=== PATIENT | female | born 1975 | race Caucasian/White ===

== ENCOUNTER → 2020-07-21 07:54 | Outpatient (BNVA) | payer BC, SELFPAY | PROVIDERS: PCP Internal Medicine; Referring Provider Internal Medicine; Visit Provider Student in an Organized Health Care Education/Training Program | DX: Z76.89 Persons encountering health services in other specified circumstances (principal) ==

== ENCOUNTER → 2021-04-16 08:07 | Outpatient (BNVA) | payer BC, SELFPAY | PROVIDERS: PCP Internal Medicine; Visit Provider Nurse Practitioner Family ==

== ENCOUNTER → 2021-11-09 09:29 | Outpatient (BNVA) | payer BC, SELFPAY | PROVIDERS: PCP Internal Medicine; Visit Provider Nurse Practitioner Family | DX: Z13.89 Encounter for screening for other disorder (principal) ==

== ENCOUNTER 2022-04-22 08:45 | Outpatient (REF) | payer BC, SELFPAY ==
[2022-04-22 09:58] LABS: Alanine Aminotransferase 19 U/L (0-31); Albumin Level 4.2 g/dL (3.5-5.0); Alkaline Phosphatase 62 U/L (39-117); Anion Gap 17 (12-20); Aspartate Amino Transferase 19 U/L (5-31); Bilirubin Total 0.3 mg/dL (0.0-1.0); Blood Urea Nitrogen 13 mg/dL (9-16); Calcium 9.4 mg/dL (8.4-10.2); Carbon Dioxide 23 mmol/L (22-29); Chloride 106 mmol/L (96-108); Estimated Glomerular Filt Rate > 60; Glucose Random 80 mg/dL (60-115); Potassium 4.5 mmol/L (3.3-5.1); Sodium 141 mmol/L (135-145)
[2022-04-22 09:58] LABS: Erythrocyte Sedimentation Rate 13 MM/HR (0-20)
[2022-04-23 10:37] LABS: Prolactin 7.9 ng/mL
[2022-04-23 13:18] LABS: Lyme Abs Screen <0.90 index
[2022-04-25 12:37] LABS: Anti Nuclear Antibody Screen NEGATIVE (NEGATIVE)
== END 2022-04-22 08:46 | disposition home or self-care (01) ==
LOC: HO.LAB 08:45
PROVIDERS: Nurse Practitioner Family; PCP Internal Medicine; Visit Provider Psychiatry & Neurology Neurology
DX: G43.009 Migraine without aura, not intractable, without status migrainosus (principal); M79.7 Fibromyalgia
CPT/HCPCS: 36415; 80053; 84146; 85652; 86038; 86039; 86617; 86618

== ENCOUNTER 2022-05-10 08:48 | Outpatient (REF) | payer BC, SELFPAY ==
--- NOTE | ~2022-05-10 | XR_ITS ---
EXAMINATION: XR HAND, BILATERAL XR FOOT, BILATERAL CLINICAL INFORMATION: Pain in bilateral hands. Pain in bilateral feet. COMPARISON: None. TECHNIQUE: 3 views of the bilateral feet. 3 views of the bilateral hands. FINDINGS: Right foot: No fracture or dislocation. No bony erosions visualized. Alignment is within normal limits. No joint effusion. Small plantar calcaneal spur. Left foot: No fracture or dislocation. No bony erosions. No joint effusion. Hands: No fracture or dislocation. Normal alignment. No erosions. Soft tissues unremarkable. No radiopaque foreign bodies. XR/XR hand LT min 3V IMPRESSION: No fracture or dislocation. No bony erosions. Small right plantar calcaneal spur.
--- NOTE | ~2022-05-10 | XR_ITS ---
EXAMINATION: XR HAND, BILATERAL XR FOOT, BILATERAL CLINICAL INFORMATION: Pain in bilateral hands. Pain in bilateral feet. COMPARISON: None. TECHNIQUE: 3 views of the bilateral feet. 3 views of the bilateral hands. FINDINGS: Right foot: No fracture or dislocation. No bony erosions visualized. Alignment is within normal limits. No joint effusion. Small plantar calcaneal spur. Left foot: No fracture or dislocation. No bony erosions. No joint effusion. Hands: No fracture or dislocation. Normal alignment. No erosions. Soft tissues unremarkable. No radiopaque foreign bodies. XR/XR foot RT 2V IMPRESSION: No fracture or dislocation. No bony erosions. Small right plantar calcaneal spur.
--- NOTE | ~2022-05-10 | XR_ITS ---
EXAMINATION: XR HAND, BILATERAL XR FOOT, BILATERAL CLINICAL INFORMATION: Pain in bilateral hands. Pain in bilateral feet. COMPARISON: None. TECHNIQUE: 3 views of the bilateral feet. 3 views of the bilateral hands. FINDINGS: Right foot: No fracture or dislocation. No bony erosions visualized. Alignment is within normal limits. No joint effusion. Small plantar calcaneal spur. Left foot: No fracture or dislocation. No bony erosions. No joint effusion. Hands: No fracture or dislocation. Normal alignment. No erosions. Soft tissues unremarkable. No radiopaque foreign bodies. XR/XR foot LT 2V IMPRESSION: No fracture or dislocation. No bony erosions. Small right plantar calcaneal spur.
--- NOTE | ~2022-05-10 | XR_ITS ---
EXAMINATION: XR HAND, BILATERAL XR FOOT, BILATERAL CLINICAL INFORMATION: Pain in bilateral hands. Pain in bilateral feet. COMPARISON: None. TECHNIQUE: 3 views of the bilateral feet. 3 views of the bilateral hands. FINDINGS: Right foot: No fracture or dislocation. No bony erosions visualized. Alignment is within normal limits. No joint effusion. Small plantar calcaneal spur. Left foot: No fracture or dislocation. No bony erosions. No joint effusion. Hands: No fracture or dislocation. Normal alignment. No erosions. Soft tissues unremarkable. No radiopaque foreign bodies. XR/XR hand RT min 3V IMPRESSION: No fracture or dislocation. No bony erosions. Small right plantar calcaneal spur.
[2022-05-10 10:49] LABS: C Reactive Protein 0.25 mg/dL (< or = 0.50)
== END 2022-05-10 08:49 | disposition home or self-care (01) ==
LOC: HO.XRAY 08:48
PROVIDERS: PCP Internal Medicine; Visit Provider Nurse Practitioner Family
DX: M79.672 Pain in left foot (principal); M79.671 Pain in right foot; M79.642 Pain in left hand; M79.641 Pain in right hand
CPT/HCPCS: 36415; 73130; 73620; 86140

== ENCOUNTER 2023-01-21 09:19 | Outpatient (AMB) | payer OTHER, SELFPAY ==
[2023-01-21 09:27] VITALS: BP 104/62; PULSE 110; TEMP 36.7; O2SAT 96; BMI 32.5
--- NOTE | 2023-01-21 09:27 | MHC.OFFVIS ---
Intake Vital Signs 01/21/23 09:27 Height 5 ft 5 in Weight 195 lb 1.745 oz BMI 32.5 BP 104/62 Blood Pressure Location Lt brachial Position Sitting Pulse 110 H Pulse Source Pulse Oximeter Temp 98.1 F Temp Source Skin Pulse Oximetry (%) 96 Intake Visit Reasons: FM Intake Note: Pt seen today for FM follow up. June 2022 started venlafaxine, doing much better. 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: No Accompanied by: Self / Same As Patient Allergies baclofen [BACLOFEN] Allergy (Intermediate, Verified 01/21/23 09:29) CHEST TIGHTNESS, chest tightness, swelling nut - unspecified [NUTS] Allergy (Intermediate, Verified 01/21/23 09:29) SWELLING OF MOUTH topiramate Adverse Reaction (Mild, Verified 01/21/23 09:29) Fatigued Medication List - Last Reconciled 01/21/23 by Bal Richter MD acetaminophen ER (Tylenol Arthritis Pain) 650 mg PO Q12H PRN cholecalciferol (vitamin D3) 25 mcg PO DAILY cyclobenzaprine 5 mg PO BEDTIME PRN diclofenac sodium 1% (Voltaren Arthritis Pain) 2 grams topical QID PRN gabapentin 600 mg (2 x 300 mg) PO TID hydroxyzine HCl 25 mg PO BEDTIME PRN naltrexone 50 mg PO DAILY sumatriptan succinate 50 mg PO DAILY PRN venlafaxine ER (Effexor XR) 75 mg PO DAILY HPI HPI Comments History of Present Illness Details Patient returns for evaluation of her fibromyalgia. She also has known osteoarthritis in the knees. She remains on gabapentin taking 600 mg 3 times a day. Occasionally she decreases it to one 300 mg capsule in the daytime. She has received occasional injections in the knees for OA but they are not particularly bothersome currently. Overall pain, energy level, and mood has improved considerably with the addition of citalopram prescribed by her primary doctor. She no longer needs any cyclobenzaprine and rarely takes acetaminophen. She notes some catching at the right thumb. [facility] Medical History (Updated 01/21/23 @ 13:45 by Bal Richter MD) Fibromyalgia Surgical History (Updated 01/21/23 @ 13:44 by Bal Richter MD) History of hip replacement Hx of hysterectomy Family History Mother CVD (cardiovascular disease) Diabetes HTN (hypertension) Father Diabetes HTN (hypertension) Social History Alcohol intake: never Patient Tobacco Use Status: Never used Tobacco Review of Systems Const Details: She is doing more exercising and working on weight reduction. This is been helpful for her. Negative for appetite change, fever, chills, malaise and fatigue Eyes Details: Negative for vision change, dry eyes,headaches and dizziness Card Details: Negative chest pain, edema and syncope Resp Details: Negative for SOB, cough and wheezing GI Details: Negative indigestion/heartburn, nausea, abdominal pain, bowel changes, diarrhea, constipation and bloody stool. Psych Details: Negative for anxiety, depression and stress Alexandro/Lymph Details: Negative for excessive bruising or bleeding. Physical Exam Vital Signs: Last Vital Signs Temp 98.1 F 01/21/23 09:27 Pulse 110 H 01/21/23 09:27 BP 104/62 01/21/23 09:27 Pulse Ox 96 01/21/23 09:27 BMI result Body Mass Index 32.5 APPEARANCE: Patient in no acute distress EYES no redness, pupils equal and reactive to light, eyelids normal EXTREMITIES: No edema, no calf tenderness, normal peripheral pulses. SKIN: No inflammatory or neoplastic lesions. Normal color and turgor JOINT EXAM: ?? Cervical Spine:? Full range of motion without pain; no tenderness. Thoracic Spine:? No scoliosis.? No tenderness on palpation. Lumbar Spine: Alignment normal.? Full range of motion without pain, no tenderness. Hands: LEFT: Normal pain-free range of motion without.? Slight tenderness along the flexor tendons at the palm. Otherwise no joint swelling or tenderness. Able to make a full fist and has a good bank teller strength. ? RIGHT: Normal pain-free range of motion. There is some slight tenderness along the thumb flexor tendon and there may also be some triggering over that tendon. Other joints have no tenderness or swelling. No thenar atrophy or sensory loss. Wrists:? Normal pain-free range of motion without tenderness, swelling, increased warmth or erythema. Elbows:Normal pain-free range of motion without tenderness, swelling, increased warmth or erythema. Shoulders:?? Full range of motion without pain. No tenderness, weakness, swelling, increased warmth or erythema. Hips:? Full range of motion without pain. Hip bursa:? No tenderness. Knees: LEFT:?? Normal pain-free range of motion.? There is mild patellofemoral crepitus and some slight medial compartment medial patellar tenderness but no effusion, redness or warmth. ? RIGHT:? Normal pain-free range of motion.? There is mild patellofemoral crepitus and slight tenderness over the medial patella and the medial joint margin. No effusion, swelling, increased warmth or erythema.? Ankles:? Normal pain-free range of motion without tenderness, swelling, increased warmth or erythema.? Widespread diffuse tenderness to palpation bilaterally. Feet: LEFT:? Bunion deformity noted 1st MTP. ? Normal pain-free range of motion without swelling, increased warmth or erythema.? Widespread diffuse tenderness to palpation. ? RIGHT: Bunion deformity noted 1st MTP. ? Normal pain-free range of motion without swelling, increased warmth or erythema.? Widespread diffuse tenderness to palpation. Tender points:. Slight tenderness to digital palpation at the slight tenderness to palpation at the second rib, lateral epicondyle, knees, greater trochanter area bilaterally. ? Assessment & Plan Assessment & Plan (1) Osteoarthritis of knees, bilateral: Code(s): M17.0 - Bilateral primary osteoarthritis of knee (2) Flexor tenosynovitis of thumb: Code(s): M65.9 - Synovitis and tenosynovitis, unspecified (3) Fibromyalgia: Code(s): M79.7 - Fibromyalgia Plan She does not seem to have any signs on exam of an active inflammatory arthritis. There is some slight pain in the flexor tendons suggesting some tenosynovitis. Overall she has done much better since the addition of the citalopram for her fibromyalgia. I encouraged her to continue with that. She could try to cut back on daytime use of the gabapentin if tolerated. She has some OA of the knees, mostly patellofemoral symptoms so that should be helped with the exercise she is doing and further reduction in her weight. A follow-up in 6 months would be reasonable. Coding Level of Care Code Est Pt Level 3 (81805) Diagnoses Osteoarthritis of knees, bilateral M17.0 Flexor tenosynovitis of thumb M65.9 Fibromyalgia M79.7
== END 2023-01-21 09:50 | disposition home or self-care (01) ==
PROVIDERS: PCP Internal Medicine; Visit Provider Internal Medicine Rheumatology
DX: M17.0 Bilateral primary osteoarthritis of knee (principal); M65.9 Synovitis and tenosynovitis, unspecified; M79.7 Fibromyalgia
CPT/HCPCS: 99213

== ENCOUNTER → 2023-01-21 09:19 | Outpatient (BNVA) | payer OTHER, SELFPAY | PROVIDERS: PCP Internal Medicine; Visit Provider Internal Medicine Rheumatology ==

== ENCOUNTER 2023-07-22 10:10 | Outpatient (AMB) | payer OTHER, SELFPAY ==
--- NOTE | 2023-07-22 10:13 | MHC.OFFVIS ---
Intake Vital Signs 07/22/23 10:14 Height 5 ft 5 in Weight 190 lb 0.615 oz BMI 31.6 BP 112/70 Blood Pressure Location Rt brachial Position Sitting Pulse 89 Pulse Source Pulse Oximeter Temp 97.4 F Temp Source Skin Pulse Oximetry (%) 96 Oxygen Delivery Method Room Air Intake Visit Reasons: FM Intake Note: Pt last seen by Dr Richter on 01/21/23 presents today for follow up. New pcp Dr Stanton last visit 05/2023 Sinker Puller Required: No Accompanied by: Self / Same As Patient Allergies baclofen [BACLOFEN] Allergy (Intermediate, Verified 07/22/23 10:16) CHEST TIGHTNESS, chest tightness, swelling nut - unspecified [NUTS] Allergy (Intermediate, Verified 07/22/23 10:16) SWELLING OF MOUTH topiramate Adverse Reaction (Mild, Verified 07/22/23 10:16) Fatigued Medication List - Last Reconciled 07/22/23 by Obie Caceres MD acetaminophen ER (Tylenol Arthritis Pain) 650 mg PO Q12H PRN cholecalciferol (vitamin D3) 25 mcg PO DAILY cyclobenzaprine 5 mg PO BEDTIME PRN diclofenac sodium 1% (Voltaren Arthritis Pain) 2 grams topical QID PRN eszopiclone 2 mg PO BEDTIME PRN gabapentin 600 mg (2 x 300 mg) PO TID hydroxyzine HCl 25 mg PO BEDTIME PRN linaclotide (Linzess) 72 mcg PO QAM naltrexone 50 mg PO DAILY ondansetron 8 mg PO TID sumatriptan succinate 50 mg PO DAILY PRN venlafaxine 75 mg PO BID HPI HPI Comments History of Present Illness Details 47-year-old female with fibromyalgia returns for follow-up. Gabapentin is prescribed as 600 mg t.i.d. but patient tries to skip the afternoon dose. Recently her Effexor was increased to 75 mg Twice daily and she feels the increased dose is helping. She feels that overall pain is a little worse now that it is colder. She exercises 6 days a week. He does not have a psychiatrist or a psychotherapist currently. Her Effexor is prescribed by her PCP. She has not interested in talking to a psychotherapist at this moment. She has done that for many years in the past. She feels that she sleeps well and wakes up refreshed. Does not believe she snores Most recent history by Dr. Richter 01/2023: Patient returns for evaluation of her fibromyalgia. She also has known osteoarthritis in the knees. She remains on gabapentin taking 600 mg 3 times a day. Occasionally she decreases it to one 300 mg capsule in the daytime. She has received occasional injections in the knees for OA but they are not particularly bothersome currently. Overall pain, energy level, and mood has improved considerably with the addition of citalopram prescribed by her primary doctor. She no longer needs any cyclobenzaprine and rarely takes acetaminophen. She notes some catching at the right thumb. [facility] Medical History Fibromyalgia Surgical History Hx of hysterectomy History of hip replacement Family History Mother CVD (cardiovascular disease) Diabetes HTN (hypertension) Father Diabetes HTN (hypertension) Social History Alcohol intake: never Patient Tobacco Use Status: Never used Tobacco Review of Systems [facility] Reports myalgias and Reports arthralgias Physical Exam Vital Signs: Last Vital Signs Temp 97.4 F 07/22/23 10:14 Pulse 89 07/22/23 10:14 BP 112/70 07/22/23 10:14 Pulse Ox 96 07/22/23 10:14 Oxygen Delivery Method Room Air 07/22/23 10:14 BMI result Body Mass Index 31.6 Const General: cooperative, healthy appearing and comfortable Nutritional Appearance: obese Orientation/consciousness: patient oriented x3 Limitations: no limitations HEENT Head: Yes normocephalic and Yes atraumatic Mouth: moist mucous membranes Resp Effort & Inspection: normal respiratory effort and able to speak in complete sentences Auscultation: clear to auscultation bilaterally Cardio Rate: regular rate Rhythm: regular rhythm GI Inspection: No distended Palpation (GI): Soft to palpation and nontender Neuro General: patient oriented x3 Extrem Other: No active synovitis Some hyperextension of her DIPs bilaterally 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 ) No obvious fibromyalgia tender points today Results Reviewed Results Reviewed: Laboratory Tests 01/13/20 04/22/22 04/22/22 08:54 08:55 08:55 ESR Sodium 141 Potassium 4.5 Chloride 106 Carbon Dioxide 23 BUN 13 Creatinine 0.79 Random Glucose 80 Calcium 9.4 Total Bilirubin 0.3 AST 19 ALT 19 Cycl Citrul Peptide IgG <16 TONA Screen NEGATIVE 04/22/22 08:56 ESR 13 Sodium Potassium Chloride Carbon Dioxide BUN Creatinine Random Glucose Calcium Total Bilirubin AST ALT Cycl Citrul Peptide IgG TONA Screen Assessment & Plan Assessment & Plan (1) Fibromyalgia: Code(s): M79.7 - Fibromyalgia Plan: This is a 47-year-old female with fibromyalgia who returns for follow-up. She is doing well on Effexor 75 mg Twice daily, prescribed by PCP and gabapentin 600 mg t.i.d.. She generally skips the afternoon gabapentin dose. She exercises 6 days a week. Patient mentions that she sleeps well and wakes up refreshed. Does not believe she snores. Continue current management. Advised patient to continue to exercise Follow-up in 6 months. Plan I spent 15 minutes reviewing patient's chart, evaluating patient, counseling patient and documenting in the chart Coding Level of Care Code Est Pt Level 3 (27817) Diagnoses Fibromyalgia M79.7
[2023-07-22 10:14] VITALS: BP 112/70; PULSE 89; TEMP 36.3; O2SAT 96; BMI 31.6
== END 2023-07-22 10:28 | disposition home or self-care (01) ==
PROVIDERS: PCP Internal Medicine; Visit Provider Student in an Organized Health Care Education/Training Program
DX: M79.7 Fibromyalgia (principal)
CPT/HCPCS: 99213

== ENCOUNTER → 2023-07-22 10:10 | Outpatient (BNVA) | payer OTHER, SELFPAY | PROVIDERS: PCP Internal Medicine; Visit Provider Student in an Organized Health Care Education/Training Program ==

== ENCOUNTER 2024-04-14 07:35 | Outpatient (AMB) | payer OTHER, SELFPAY ==
--- NOTE | 2024-04-14 07:40 | A.OFFVIS_ITS ---
Vital Signs 04/14/24 07:42 Height 5 ft 5 in Weight 195 lb 12.328 oz BMI 32.6 BP 100/62 Blood Pressure Location Rt brachial Position Sitting Pulse 93 Pulse Source Pulse Oximeter Pulse Oximetry (%) 98 Oxygen Delivery Method Room Air Intake Visit Reasons: FMS Intake Note: Patient presents for FMS. Allergies baclofen [BACLOFEN] Allergy (Intermediate, Verified 04/14/24 07:42) CHEST TIGHTNESS, chest tightness, swelling nut - unspecified [NUTS] Allergy (Intermediate, Verified 04/14/24 07:42) SWELLING OF MOUTH topiramate Adverse Reaction (Mild, Verified 04/14/24 07:42) Fatigued Medication List - Last Reconciled 04/14/24 by Obie Caceres MD acetaminophen ER (Tylenol Arthritis Pain) 650 mg PO Q12H PRN cholecalciferol (vitamin D3) 25 mcg PO DAILY cyclobenzaprine 5 mg PO BEDTIME PRN diclofenac sodium 1% (Voltaren Arthritis Pain) 2 grams topical QID PRN eszopiclone 2 mg PO BEDTIME PRN gabapentin 600 mg (2 x 300 mg) PO TID hydroxyzine HCl 25 mg PO BEDTIME PRN linaclotide (Linzess) 72 mcg PO QAM naltrexone 50 mg PO DAILY ondansetron 8 mg PO TID sumatriptan succinate 50 mg PO DAILY PRN venlafaxine 75 mg PO BID HPI Comments Details: 48-year-old female with fibromyalgia returns for follow-up. She remains on gabapentin 600 mg t.i.d.. Sometimes she skips the afternoon dose. She does different forms of exercise 6 days a week. She has not had a sleep study. She is not interested in psychotherapy evaluation. [facility] Medical History Fibromyalgia Surgical History Hx of hysterectomy History of hip replacement Family History Mother CVD (cardiovascular disease) Diabetes HTN (hypertension) Father Diabetes HTN (hypertension) Social History Alcohol intake: never Patient Tobacco Use Status: Never used Tobacco Review of Systems [facility] Reports myalgias and Reports arthralgias Physical Exam Vital Signs: Last Vital Signs Pulse 93 04/14/24 07:42 BP 100/62 04/14/24 07:42 Pulse Ox 98 04/14/24 07:42 Oxygen Delivery Method Room Air 04/14/24 07:42 BMI result Body Mass Index 32.6 Const General: cooperative, healthy appearing and comfortable Nutritional Appearance: obese Orientation/consciousness: patient oriented x3 Limitations: no limitations HEENT Head: Yes normocephalic and Yes atraumatic Mouth: moist mucous membranes Resp Effort & Inspection: normal respiratory effort and able to speak in complete sentences Auscultation: clear to auscultation bilaterally Cardio Rate: regular rate Rhythm: regular rhythm GI Inspection: No distended Palpation (GI): Soft to palpation and nontender Neuro General: patient oriented x3 Extrem Other: No active synovitis Some hyperextension of her DIPs bilaterally 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 She is doing well on Effexor 75 mg Twice daily, prescribed by PCP and gabapentin 600 mg t.i.d.. She generally skips the afternoon gabapentin dose. She exercises 6 days a week. Patient mentions that she sleeps well and wakes up refreshed. Does not believe she snores. Advised patient to consider getting a sleep study to rule out TWYLA. She is not interested in psychotherapy evaluation Continue current management. Advised patient to continue to exercise Follow-up in 6 months. Plan I spent 15 minutes reviewing patient's chart, evaluating patient, counseling patient and documenting in the chart Medications: Refilled gabapentin 600 mg (2 x 300 mg) PO TID 180 caps 3RF M79.7 - Fibromyalgia gabapentin 600 mg (2 x 300 mg) PO TID 180 caps 5RF M79.7 - Fibromyalgia Coding Level of Care Code Est Pt Level 3 (54552) Diagnoses Fibromyalgia M79.7
[2024-04-14 07:42] VITALS: BP 100/62; PULSE 93; O2SAT 98; BMI 32.6
== END 2024-04-14 08:01 | disposition home or self-care (01) ==
PROVIDERS: PCP Internal Medicine; Visit Provider Student in an Organized Health Care Education/Training Program
DX: M79.7 Fibromyalgia (principal)
CPT/HCPCS: 99213

== ENCOUNTER → 2024-04-14 07:35 | Outpatient (BNVA) | payer OTHER, SELFPAY | PROVIDERS: PCP Internal Medicine; Visit Provider Student in an Organized Health Care Education/Training Program ==

== ENCOUNTER 2025-01-20 08:15 | Outpatient (AMB) | payer BC, SELFPAY ==
--- NOTE | 2025-01-20 08:18 | A.OFFVIS_ITS ---
Vital Signs 01/20/25 08:25 Height 5 ft 5 in Weight 192 lb 10.944 oz BMI 32.1 BP 120/80 Blood Pressure Location Rt brachial Position Sitting Pulse 101 H Pulse Source Pulse Oximeter Pulse Oximetry (%) 98 Oxygen Delivery Method Room Air Intake Visit Reasons: FMS Intake Note: Patient presents for FMS follow up. Allergies baclofen (BACLOFEN) Allergy (Intermediate, Verified 01/20/25 08:23) CHEST TIGHTNESS, chest tightness, swelling nut - unspecified (NUTS) Allergy (Intermediate, Verified 01/20/25 08:23) SWELLING OF MOUTH topiramate Adverse Reaction (Mild, Verified 01/20/25 08:23) Fatigued Medication List - Last Reconciled 01/20/25 by Anaya Kincaid MD acetaminophen ER (Tylenol Arthritis Pain) 650 mg PO Q12H PRN cholecalciferol (vitamin D3) 25 mcg PO DAILY cyclobenzaprine 5 mg PO BEDTIME PRN diclofenac sodium 1% (Voltaren Arthritis Pain) 2 grams topical QID PRN eszopiclone 2 mg PO BEDTIME PRN gabapentin 600 mg (2 x 300 mg) PO TID hydroxyzine HCl 25 mg PO BEDTIME PRN linaclotide (Linzess) 72 mcg PO QAM naltrexone 50 mg PO DAILY ondansetron 8 mg PO TID sumatriptan succinate 50 mg PO DAILY PRN venlafaxine 225 mg PO ONCE HPI Comments Details: Patient is a 49-year-old female with hx of SUFE s/p fixation c/b limb length discrepancy and early hip OA, migraines, polyarticular osteoarthritis (Hip s/p LHR 03/2019, RHR 05/2018; Knee LKR 12/2024) and fibromyalgia here today for follow up Interval History: Patient last seen 04/14/[address] Caceres. - On gabapentin 600mg tid, sometimes skipping the afternoon dose - No changes to medications Today, - Had left knee replacement 12/2024 - Currently doing PT - Requesting additional cyclobenzaprine to help with muscle spasms Rheumatologic History: fibromyalgia - Gabapentin - cyclobenzaprine. did not tolerate - Lyrica. caused weight gain - Amitriptyline. Helped but made her tired - Cymbalta. Caused tremors Current Rheumatology Medication(s): Low dose naltrexone (prescribed by Urology) Gabapentin 600mg tid PFSH Medical History Fibromyalgia Surgical History (Updated 01/20/25 @ 08:25 by TRACEY Ashby) History of left knee replacement Hx of hysterectomy History of hip replacement Family History Mother CVD (cardiovascular disease) Diabetes HTN (hypertension) Father Diabetes HTN (hypertension) Social History Alcohol intake: never Patient Tobacco Use Status: Never used Tobacco Review of Systems Const Details: Review of Systems Constitutional: Denies fever, chills, weight loss ENT: Denies vision changes, eye pain or eye redness, dental caries, dry mouth GI: Denies nausea, vomiting, diarrhea, abdominal pain, change in BM Pulm: Denies SOB, ERNANDEZ, hemoptysis, wheezing Cards: Denies chest pain, palpitations Skin: Denies Raynaud's, rash, nail changes, photosensitivity, [employer]ARK INTER[employer]ANGER: Denies headaches, weakness, paresthesias, recurrent falls MSK: as per HPI All other systems reviewed and are unremarkable except noted above Physical Exam Vital Signs: Last Vital Signs Pulse 101 H 01/20/25 08:25 BP 120/80 01/20/25 08:25 Pulse Ox 98 01/20/25 08:25 Oxygen Delivery Method Room Air 01/20/25 08:25 BMI result Body Mass Index 32.1 Vital signs reviewed Physical Examination CONSTITUITIONAL Patient alert and cooperative. Well appearing and in no apparent painful distress HEENT Conjunctiva and sclera clear. No lymphadenopathy. CHEST/RESPIRATORY SYSTEM Normal respiratory effort and able to speak in complete sentences. Clear to auscultation bilaterally. No crackles, rales, rhonchi, wheezes heard. CARDIAC SYSTEM Regular rate and rhythm. S1 and S2 heard no murmurs. Radial pulses intact bilaterally MSK Hands * Right Hand: Able to make a fist. No swelling or tenderness to palpation of these joints. No deformities noted. * Left Hand: Able to make a fist. No swelling or tenderness to palpation of these joints. No deformities noted. Wrists * Right Wrist: Full ROM. 70 degrees of wrist flexion, 80 degrees of wrist extension. No swelling or TTP * Left Wrist: Full ROM. 70 degrees of wrist flexion, 80 degrees of wrist extension. No swelling or TTP Elbows * Right Elbow: Full ROM. No swelling or TTP. No TTP of the medial and lateral epicondyles * Left Elbow: Full ROM. No swelling or TTP. No TTP of the medial and lateral epicondyles Shoulders * Right shoulder: Full ROM. No swelling noted. No TTP of the AC joint, subacromial bursa or posterior shoulder * Left shoulder: Full ROM. No swelling noted. No TTP of the AC joint, subacromial bursa or posterior shoulder Hip bursa: Tenderness to palpation bilaterally. L>R Knees * Right knee: Full ROM. No swelling noted. No TTP of the knee joint lie or pes anserine bursa * Left knee: Held in flexion. Warmth and swelling noted. TTP of joint line. TTP pes anserine bursa Ankles * Right ankle: Good ankle dorsiflexion and plantar flexion. No swelling. No TTP of the ankle joint * Left ankle: Good ankle dorsiflexion and plantar flexion. No swelling. No TTP of the ankle joint Feet * Right foot: Negative squeeze test * Left foot: Negative squeeze test Tender points? * Tenderness to palpation of the bilateral trapezius, supraspinatus, anterior costochondral junctions, bilateral suboccipital muscle insertions SKIN No rashes Assessment & Plan Assessment & Plan (1) Fibromyalgia: Code(s): M79.7 - Fibromyalgia Category: Medical Plan: #Fibromyalgia Patient is a 49 y.o. female with fibromyalgia here today for follow up. Currently stable Recovering from her L knee replacement Requesting some additional cyclobenzaprine to help with muscle spasms Plan - Gabapentin 600mg tid - Cyclobenzaprine 5mg nightly prn - RTC 1 year Plan I spent 20 minutes reviewing the record and labs, taking a history, examining the patient, discussing the treatment plan, ordering diagnostic work up and documenting in the medical record Medications: Refilled gabapentin 600 mg (2 x 300 mg) PO TID 180 caps 11RF M79.7 - Fibromyalgia Coding Level of Care Code Est Pt Level 3 (10742) Diagnoses Fibromyalgia M79.7
--- OUTSIDE RECORDS SUMMARY | 2025-01-20 08:21 | XMS_ITS | Clinical Summary ---
Author Organization [facility] ity Address [address] [place] [address] Care Team Providers Care Die Try Out Worker Stamping Name Role Phone Unavailable Primary Care Provider Unavailabl e Social History Tobacco Use Types Packs/Day Years Used Date Smoking Tobacco: Never Assessed Comments Unknown Sex and Gender Information Value Date Recorded Sex Assigned at Not on file Legal Sex Female 10:22 PM EST Gender Identity Not on file Sexual Orientation Not on file Plan of Treatment Upcoming Encounters Date Type Department Care Team ([facility] st Contact Info) Description 05/16/2025 2:30 PM EST Office Visit Bariatric Surgery - [place] [address] [facility] [facility] [address] [place] [id number] Estela Partida PA [address] [place] [address] Health Maintenance Due Date Last Done Comments Breast Cancer Screening 1977 DTaP,Tdap,and Td Vaccines (1 - Tdap) 1996 Hepatitis B Vaccines (1 of 3 - 19+ 3-dose series) 1996 Cervical Cancer Screening: P ap Smear 1998 COVID-19 Vaccine (2023-2 5 season) 2024 Influenza Vaccine (#1) 2025 HIB Vaccines Aged Out No longer eligi ble based on patient's age to complete this topic HPV Vaccines Aged Out No longer eligi ble based on patient's age to complete this topic Hepatitis A Vaccines Aged Out No long er eligible based on patient's age to complete this topic IPV Vaccines Aged Out No longer eligi ble based on patient's age to complete this topic MMR Vaccines Aged Out No longer eligi ble based on patient's age to complete this topic Meningococcal ACWY Vaccine Aged Out N o longer eligible based on patient's age to complete this topic Meningococcal B Vaccine Aged Out No l onger eligible based on patient's age to complete this topic Pneumococcal Vaccine: Pediat rics (0 to 5 Years) and At-Risk Patients (6 to 49 Years) Aged Out No longer eligible b ased on patient's age to complete this topic RSV Immunization Patients Un gautam 20 months Aged Out No longer eligible b ased on patient's age to complete this topic Varicella Vaccines Aged Out No longer eligible based on patient's age to complete this topic
--- OUTSIDE RECORDS SUMMARY | 2025-01-20 08:21 | XMS_ITS | Clinical Summary ---
Author Organization [facility] Address [address] [place] [id number] Care Team Providers Care Staff Weapons Officer Name Role Phone Grace Buchanan MD Unavailable [phone] Mandy Weller PA-C Primary Care Provi gautam Allergies Active Allergy Reactions Criticality Noted Date Comments Baclofen Other (See Comments) Medium 03/10/2020 Chest tightness Bupropion Other (See Comments) Low 08/03/2024 Chlorhexidine Other (See Comments) Medium 12/19/2023 Causes burning and pain. KY jelly Medications gabapentin (NEURONTIN) 300 MG capsule Take 2 capsules (600 mg total) by mouth 3 (three) times a day. 3 Active polyethylene glycol 17 g packet Take 1 packet (17 g total) by mouth daily. Active ondansetron (ZOFRAN-ODT) 8 MG disintegrating tabletIndications: Migraine with aura and without status migrainosus, not intractable Take 1 tablet (8 mg total) by mouth 3 times daily (every 8 hours) as needed for nausea or vomiting. Place tablet on tongue and to dissolve. 30 tablet 3 Active naltrexone (REVIA) 25 MG tablet Take 2 split tablet (50 mg total) by mouth daily. Active venlafaxine (EFFEXOR-XR) 150 MG 24 hr capsuleIndications :Anxiety associated with depression Take 1 capsule (150 mg total) by mouth daily. 90 capsule 3 4 Active SUMAtriptan (IMITREX) 50 MG tabletIndications: Migraine with aura and without status migrainosus, not intractable Take 1 tablet (50 mg total) by mouth once as needed for migraine. May repeat in 2 hours if unresolved. Do not exceed 200 mg in 24 hours. 9 tablet 1 4 Active prucalopride succinate (MOTEGRITY) 2 MG tabletIndications: Chronic constipation Take 1 tablet (2 mg total) by mouth daily. 30 tablet 11 4 025 Active semaglutide (OZEMPIC) (0.25 or 0.5 mg/dose pen) prefilled pen injectionIndicatio ns:Obesity (BMI 30-39.9),Family history of diabetes mellitus Inject 0.25 mg under the skin once a week. 6 mL 5 Active venlafaxine (EFFEXOR-XR) 37.5 MG 24 hr capsuleIndications :Moderate episode of recurrent major depressive disorder (HCC) Take one 37.5mg capsule along with your 150mg dose to make 187.5mg total. In two weeks if positive or no response, try increasing to two 37.5mg capsules to go along with the 150mg to make 225mg total. 90 capsule Active Active Problems Problem Noted Date Diagnosed Date Lumbar spondylosis 08/27/2024 Osteoarthritis of knee 08/27/2024 H/O slipped capital femoral epiphysis (SCFE) Migraine without status migrainosus, not intract able 08/27/2024 IC (interstitial cystitis) 08/27/2024 Chronic back pain 08/03/2024 Obesity 08/03/2024 Fibromyalgia 08/02/2000 Resolved Problems Problem Noted Date Diagnosed Date Resolved Date History of hysterectomy 08/27/202408/14 Hx of section 08/27/202408/27 thyroiditis 08/27/202408/27 OA (osteoarthritis) of hip 08/03/2024 0 08/27/2024 Binge eating disorder 08/03/20242024 History of PCOS 08/03/2024 08/27/2024 Incisional hernia 08/06/2021 08/27/2024 Arthralgia 03/10/2020 08/27/2024 Paresthesias 03/10/2020 08/27/2024 Chronic left-sided low back pain with left-sided sciatica 03/10/2020 08/27/2024 S/P bilateral hip replacements 03/10/2020 08/27/2024 Encounters Date Type Department Care Team Description 11/30/2024 Scanned Document [facility] [address] [place] [address] Urology, Scan from Last 3 Months Immunizations Immunization Administration Dates Next Due Influenza Inactivated/Split Preservative Free IM 03/18/2020 Influenza, Unspecified 03/02/2023 Family History Medical History Relation Name Comments Diabetes Father Mike Dialysis patien t Hypertension Father Mike Kidney disease Father Mike Dialysis from diabetes Diabetes Maternal Grandfather Devaughn Heart disease Maternal Grandfather Devaughn Stroke Maternal Grandfather Devaughn Arthritis Maternal Grandmother Kayla knees r eplaced Hypertension Maternal Grandmother Kayla Heart attack Maternal Uncle Franklin Congestive he art failure Mental illness Maternal Uncle Frnaklin Bipolar Diabetes Mother Lela Congestive hear t failure, @ 46 Heart attack Mother Lela Congestive hear t failure Heart disease Mother Lela Hypertension Mother Lela Relation Name Status Comments Father Mike Maternal Grandfather Devaughn Maternal Grandmother Kayla Maternal Uncle Franklin Mother Lela Social History Tobacco Use Types Packs/Day Years Used Date Smoking Tobacco: Never Smokeless Tobacco: Never Tobacco Cessation:Counseling Given: Not Answered Alcohol Use Standard Drinks/Week Comments Never 0 (1 standard drink = 0.6 oz pur e alcohol) [facility] Utilities Answer Date Recorded In the past 12 months has e electric, gas, oil, or water company threatened to shut off services in your home? No 06/24/2024 Social Connection and Isolation Panel [NHANES] A nswer Date Recorded In a typical week, how many times do you talk on the phone with family, friends, or neighbors? Patient declined 06/24/2024 Frequency of Social Gatherings with Friends and Family Not on file 06/24/2024 Attends Christian Services Not on file 06/24 Active Member of Clubs or Organizations Not on f ile 06/24/2024 Attends Club or Organization Meetings Not on socorro e 06/24/2024 Marital Status Not on file 06/24/2024 AUDIT-C Answer Date Recorded Q1: How often do you have a drink containing alc ohol? Never 06/24/2024 Average Number of Drinks Not on file 024 Frequency of Binge Drinking Not on file 06/13 Overall Financial Resource Strain (CARDIA) Answe r Date Recorded How hard is it for you to pa y for the very basics like food, housing, medical care, and heating? Not hard at all 06/11/2023 PHQ-2 Answer Date Recorded PHQ-2 Total Score 0 06/11/[address] [facility] - Occupational Stress Questionnaire Answer Date Recorded Do you feel stress - tense, restless, nervous, or anxious, or unable to sleep at night because your mind is troubled all the time - these days? Only a little 12/19/2023 Hunger Vital Sign Answer Date Recorded Within the past 12 months, y ou worried that your food would run out before you got the money to buy more. Never true 06/24/20 24 Within the past 12 months, t he food you bought just didn't last and you didn't have money to get more. Never true 06/24/2024 PRAPARE - Transportation Answer Date Re corded In the past 12 months, has l ack of transportation kept you from medical appointments or from getting medications? No 06/13 In the past 12 months, has l ack of transportation kept you from meetings, work, or from getting things needed for daily living? No 06/24/2024 Housing Stability Vital Sign Answer Baljit e Recorded In the last 12 months, was t here a time when you were not able to pay the mortgage or rent on time? No 06/24/2024 Number of Times Moved in the Last Year Not on fi le 06/24/2024 At any time in the past 12 m [facility], were you homeless or living in a senior care (including now)? No 06/24/2024 Physical Activity Answer Date Recorded On average, how many days pe r week do you engage in moderate to strenuous exercise (like a brisk walk)? 6 days 12/19/2023 On average, how many minutes do you exercise per day at this level? 40 min 12/19/2023 Education Answer Date Recorded What is the highest level of school you have completed or the highest degree you have received? Master's degree (e.g., MA, MS, Ana, MEd, ACCOUNTING ANALYST, AZAR) 06/11/2023 Comments No Sex and Gender Information Value Date Recorded Sex Assigned at Female 06/11/2023 7:29 AM EST Legal Sex Female 4:57 PM EDT Gender Identity Female 06/12/2023 11:13 PM EST Sexual Orientation Choose not to disclose 2022 11:13 PM EST Last Filed Vital Signs Vital Sign Reading Time Taken Comments Blood Pressure 100/60 08/27/2024 8:15 AM EST Pulse 92 08/27/2024 8:15 AM EST Temperature 36.4 C (97.5 F) 08/27/2024 8:15 AM EST Respiratory Rate 17 08/27/2024 8:15 AM EST Oxygen Saturation 97% 08/27/2024 8:15 AM EST Inhaled Oxygen Concentration - - Weight 94.3 kg (207 lb 12.8 oz) 08/27/2024 8:15 AM EST Height 162.6 cm (5' 4 ) 08/27/2024 8:15 AM EST Body Mass Index 35.67 08/27/2024 8:15 AM EST Plan of Treatment Upcoming Encounters Date Type Department Care Team (Late st Contact Info) Description 02/17/2025 8:00 AM EDT Office Visit [facility] [address] [facility] [address] [place] [address] Margaret Cho MD [address] [place] [address] Health Maintenance Due Date Last Done Comments Hepatitis C Virus Screening 1977 HIV Screening 1990 DTaP/Tdap/Td Vaccines (1 - Tdap) 1996 Hepatitis B Vaccines (1 of 3 - 19+ 3-dose series) 1996 Pap Smear (Ages 21-65) 1998 COVID-19 Vaccine ( - 2023-2 5 season) 2024 Influenza Vaccine 02/11/2025 03/12/2024, 03/02/2023, 03/18/2020 Physical 06/11/2025 06/11/2023 Mammogram 01/23/2026 01/24/2024 Colonoscopy 09/14/2028 09/15/2023 Pneumococcal Vaccine: Pediatric (0-5 Years) and At-Risk Patients (6 to 49 Years) Aged Out No longer eligible b ased on patient's age to complete this topic Procedures Procedure Name Priority Date/Time Associated Diagnosis Comments IMAGING BREAST/BX/MAMMO Routine 01/24/2024 3:18 PM EDT from Last 3 Months or Most Recently Relevant to Health Maintenance Results * Imaging Breast/Bx/Mammo Result (01/24/2024 3:18 PM EDT) Anatomical Region Laterality Modality Other us Scan Obstetrics And Gynecology IMG LEGACY PROCED URES Edited Result - Final from Last 3 Months or Most Recently Relevant to Health Maintenance Insurance [facility] Care Teams Staff Weapons Officer Relationship Specialty Start Date End Date Mandy Weller PA-C [address] [place] [address] PCP - General Internal Medicine 08/27/24 Grace Buchanan MD [address] [place] [id number] Urogynecology 12/19/23
[2025-01-20 08:25] VITALS: BP 120/80; PULSE 101; O2SAT 98; BMI 32.1
--- OUTSIDE RECORDS SUMMARY | 2025-03-03 20:00 | XMS_ITS | Clinical Summary ---
Author Organization Unknown Care Team Providers Care Curam Developer Name Role Phone CARMEN PA, ALEKSANDRA Unavailable Unavailestrellita BAKER ([facility]) [facility], KESHIA Unavailable Unavailable Payers Payer Name Policy Type Policy Number Effective Date Expira tion Date [facility]OS - [facility] [place] [id number] SELF PAY Problems Condition Name Condition Details Condition Category Status Onset Date Resolution Date Last Treatment Date Treating Clinician Comments UNILATERAL PRIMARY OSTEOARTHRIT IS, LEFT KNEE Active 12-27 00:00: 00 Allergies, Adverse Reactions, Alerts Allergy Name Allergy Type Status Severity Reaction(s) Onset Date Inactive Date Treating Clinician Comments BACLOFEN Propensity to adverse reactions Active 01-05 23:25: 03 NSAIDS Propensity to adverse reactions Active 01-05 23:25: 15 BUPROPRION Propensity to adverse reactions Active 01-05 23:25: 25 DILAUDID Propensity to adverse reactions Active 01-05 23:25: 34 Immunizations Ordered Immunization Name Filled Immunization Name Date Status Comments Refusal Reason COVID BOOSTER, COVID BOOSTER 2024-04-13 00:00:00 Vital Signs Vital Name Observation Time Observation Value Commen ts Temperature 2025-01-12 13:16:00.000 97.6 [degF] Temperature 2025-01-04 11:04:00.000 97.3 [degF] BMI (%) 2025-01-04 11:04:00.000 32 kg/m2 Height 2025-01-04 11:04:00.000 64 [in_us] Pulse 2025-01-12 13:16:00.000 82 /min Pulse 2025-01-04 11:04:00.000 84 /min Respirations 2025-01-12 13:16:00.000 18 /min Respirations 2025-01-04 11:04:00.000 15 /min Weight (lbs) 2025-01-04 11:04:00.000 190 [lb_av] Systolic Blood Pressure 2025-01-12 13:16:00.000 102 mm [Hg] Systolic Blood Pressure 2025-01-04 11:04:00.000 96 mm[ Hg] Diastolic Blood Pressure 2025-01-12 13:16:00.000 64 mm [Hg] Diastolic Blood Pressure 2025-01-04 11:04:00.000 61 mm [Hg] Plan of Treatment Planned Activity Planned Date Details Comments Future Scheduled Test PHYSICAL T HERAPIST TO EVALUATE PATIENT SECONDARY TO FUNCTIONAL DEFICITS/SAFETY CONCERNS. [code = PHYSICAL THERAPIST TO EVALUATE PATIENT SECONDARY TO FUNCTIONAL DEFICITS/SAFETY CONCERNS.] Future Scheduled Test SUMMARY OF THERAPY EVAL/ASSESSMENT FINDINGS AND REASON(S) SKILLS OF A THERAPIST ARE INDICATED: PATIENT IS A 49-YEAR-OLD FEMALE STATUS POST LEFT TOTAL KNEE REPLACEMENT BY DR CAMEJO. PATIENT REPORTED TO HAVE A FALL WHEN RETURNING HOME LANDING ON HER LEFT SIDE. NO SIGNIFICANT INJURY REPORTED. PAST MEDICAL HISTORY SIGNIFICANT FOR OSTEOARTHRITIS, ANXIETY, DEPRESSION, FIBROMYALGIA, RIGHT TOTAL HIP REPLACEMENT. PRIOR LEVEL OF MOBILITY WAS INDEPENDENT WITHOUT ASSISTIVE DEVICE. PATIENT IS ALERT AND ORIENTATED TIMES FOUR. SHE STANDS 5 FT 4 IN TALL WITH A WEIGHT OF 190 LB. PATIENT COMPLAINS OF LEFT KNEE PAIN REACHING 5 OUT OF 10. RESTING VITAL SIGNS WITHIN NORMAL LIMITS. ONE PLUS PITTING EDEMA LEFT LOWER EXTREMITY UTILIZING LANCE STOCKINGS. LIVES WITH ABLE CAREGIVER THAT PROVIDES ADL AND I ADL CARE. ACTIVE RANGE OF MOTION LEFT KNEE -5 EXTENSION TO 80 FLEXION. PATIENT TRANSFERS WITH ASSISTANCE TIMES ONE AMBULATING WITH ASSISTANCE TIMES 1 WEIGHT BEARING IS TOLERATED LEFT LOWER EXTREMITY. PATIENT WILL BENEFIT FROM SHORT-TERM HOME THERAPY TO ADDRESS BILATERAL LOWER EXTREMITY WEAKNESS, PROGRESSIVE MOBILITY TRAINING, CAREGIVER TRAINING PAIN MANAGEMENT RANGE OF MOTION BUSTER EDUCATION AND STRENGTHENING. PATIENT AGREES WITH PLAN OF CARE. MEDICATION RECONCILIATION COMPLETED WITH DISCHARGE PAPERWORK. TELEPHONE CALL TO DR CAMEJO'S OFFICE TO REPORT FALL. [code = SUMMARY OF THERAPY EVAL/ASSESSMENT FINDINGS AND REASON(S) SKILLS OF A THERAPIST ARE INDICATED: PATIENT IS A 49-YEAR-OLD FEMALE STATUS POST LEFT TOTAL KNEE REPLACEMENT BY DR CAMEJO. PATIENT REPORTED TO HAVE A FALL WHEN RETURNING HOME LANDING ON HER LEFT SIDE. NO SIGNIFICANT INJURY REPORTED. PAST MEDICAL HISTORY SIGNIFICANT FOR OSTEOARTHRITIS, ANXIETY, DEPRESSION, FIBROMYALGIA, RIGHT TOTAL HIP REPLACEMENT. PRIOR LEVEL OF MOBILITY WAS INDEPENDENT WITHOUT ASSISTIVE DEVICE. PATIENT IS ALERT AND ORIENTATED TIMES FOUR. SHE STANDS 5 FT 4 IN TALL WITH A WEIGHT OF 190 LB. PATIENT COMPLAINS OF LEFT KNEE PAIN REACHING 5 OUT OF 10. RESTING VITAL SIGNS WITHIN NORMAL LIMITS. ONE PLUS PITTING EDEMA LEFT LOWER EXTREMITY UTILIZING LANCE STOCKINGS. LIVES WITH ABLE CAREGIVER THAT PROVIDES ADL AND I ADL CARE. ACTIVE RANGE OF MOTION LEFT KNEE -5 EXTENSION TO 80 FLEXION. PATIENT TRANSFERS WITH ASSISTANCE TIMES ONE AMBULATING WITH ASSISTANCE TIMES 1 WEIGHT BEARING IS TOLERATED LEFT LOWER EXTREMITY. PATIENT WILL BENEFIT FROM SHORT-TERM HOME THERAPY TO ADDRESS BILATERAL LOWER EXTREMITY WEAKNESS, PROGRESSIVE MOBILITY TRAINING, CAREGIVER TRAINING PAIN MANAGEMENT RANGE OF MOTION BUSTER EDUCATION AND STRENGTHENING. PATIENT AGREES WITH PLAN OF CARE. MEDICATION RECONCILIATION COMPLETED WITH DISCHARGE PAPERWORK. TELEPHONE CALL TO DR CAMEJO'S OFFICE TO REPORT FALL.] Future Scheduled Test PHYSICAL T HERAPIST TO ASSESS BEST PRACTICE INTERVENTIONS TO ASSIST PATIENTS TO IMPROVE OR STABILIZE MEDICAL STATUS AND PREVENT RE-HOSPITALIZATION. MEASURES INCLUDING REVIEW AND IDENTIFICATION OF CONCERNS FOR THE FOLLOWING AREAS:DEPRESSION, DRUG REGIMEN, ENVIRONMENTAL SAFETY ISSUES AND FALLS, PAIN, AND DISEASE MANAGEMENT. [code = PHYSICAL THERAPIST TO ASSESS BEST PRACTICE INTERVENTIONS TO ASSIST PATIENTS TO IMPROVE OR STABILIZE MEDICAL STATUS AND PREVENT RE-HOSPITALIZATION. MEASURES INCLUDING REVIEW AND IDENTIFICATION OF CONCERNS FOR THE FOLLOWING AREAS:DEPRESSION, DRUG REGIMEN, ENVIRONMENTAL SAFETY ISSUES AND FALLS, PAIN, AND DISEASE MANAGEMENT.] Future Scheduled Test THERAPIST TO REVIEW PATIENT MEDICATIONS (PRESCRIPTION/OTC). INSTRUCT PATIENT/CAREGIVER ON ALL MEDICATIONS INCLUDING PURPOSE, WHEN TO TAKE, IMPORTANCE OF MEDICATION ADHERENCE, MONITORING OF EFFECTIVENESS, ADVERSE DRUG EVENTS, POSSIBLE SIDE EFFECTS, AND WHEN TO NOTIFY AGENCY OR PHYSICIAN/PROVIDER OF ANY CONCERNS. THERAPIST TO PROVIDE FUNCTIONAL STRATEGIES/TECHNIQUES FOR MANAGING MEDICATIONS. [code = THERAPIST TO REVIEW PATIENT MEDICATIONS (PRESCRIPTION/OTC). INSTRUCT PATIENT/CAREGIVER ON ALL MEDICATIONS INCLUDING PURPOSE, WHEN TO TAKE, IMPORTANCE OF MEDICATION ADHERENCE, MONITORING OF EFFECTIVENESS, ADVERSE DRUG EVENTS, POSSIBLE SIDE EFFECTS, AND WHEN TO NOTIFY AGENCY OR PHYSICIAN/PROVIDER OF ANY CONCERNS. THERAPIST TO PROVIDE FUNCTIONAL STRATEGIES/TECHNIQUES FOR MANAGING MEDICATIONS.] Future Scheduled Test PHYSICAL T HERAPY FOR OBSERVATION AND ASSESSMENT OF PAIN, EFFECTIVENESS OF PAIN MANAGEMENT REGIMEN AND SKILLED TEACHING RELATED TO PAIN MANAGEMENT. THERAPIST TO REPORT INCREASED PAIN LEVEL TO PHYSICIAN FOR PROMPT INTERVENTION. [code = PHYSICAL THERAPY FOR OBSERVATION AND ASSESSMENT OF PAIN, EFFECTIVENESS OF PAIN MANAGEMENT REGIMEN AND SKILLED TEACHING RELATED TO PAIN MANAGEMENT. THERAPIST TO REPORT INCREASED PAIN LEVEL TO PHYSICIAN FOR PROMPT INTERVENTION.] Future Scheduled Test PHYSICAL T HERAPY TO INSTRUCT PATIENT/CAREGIVER ON SAFE TRANSFER TECHNIQUES USING PROPER BODY MECHANICS AND EQUIPMENT. [code = PHYSICAL THERAPY TO INSTRUCT PATIENT/CAREGIVER ON SAFE TRANSFER TECHNIQUES USING PROPER BODY MECHANICS AND EQUIPMENT.] Future Scheduled Test PHYSICAL T HERAPY TO INSTRUCT PATIENT/CAREGIVER ON GAIT TRAINING TECHNIQUES USING APPROPRIATE ASSISTIVE DEVICE, PROPER BODY MECHANICS TO IMPROVE MOBILITY, AND PREVENT INJURY OF PATIENT AND/OR CAREGIVER. [code = PHYSICAL THERAPY TO INSTRUCT PATIENT/CAREGIVER ON GAIT TRAINING TECHNIQUES USING APPROPRIATE ASSISTIVE DEVICE, PROPER BODY MECHANICS TO IMPROVE MOBILITY, AND PREVENT INJURY OF PATIENT AND/OR CAREGIVER.] Future Scheduled Test PHYSICAL T HERAPY TO ASSESS AND RECOMMEND HOME SAFETY ADAPTATIONS AND EDUCATE PATIENT /CAREGIVER ON FALL PREVENTION STRATEGIES. [code = PHYSICAL THERAPY TO ASSESS AND RECOMMEND HOME SAFETY ADAPTATIONS AND EDUCATE PATIENT /CAREGIVER ON FALL PREVENTION STRATEGIES.] Goal Patient Goal - TO IMPROVE US E OF ME Goal Provider Goal - PHYSICAL THERAPY EVALUATION TO BE COMPLETED WITH RECOMMENDATIONS AND/OR WRITTEN TREATMENT PLAN OF CARE ESTABLISHED FOR THE PHYSICIANS SIGNATURE Goal Provider Goal - Goal Provider Goal - PATIENT/CAREGIVER VERBALIZES UNDERSTANDING OF THE INITIAL BEST PRACTICE RECOMMENDATIONS. PHYSICIAN TO BE NOTIFIED APPROPRIATE FOR ANY CHANGES OR COMPLICATIONS THROUGHOUT THE CERTIFICATION PERIOD. Goal Provider Goal - PATIENT/CAREGIVER WILL VERBALIZE/DEMONSTRATE UNDERSTANDING OF MEDICATIONS AND STRATEGIES/TECHNIQUES FOR MEDICATION MANAGEMENT BY THE END OF THE CERTIFICATION PERIOD. Goal Provider Goal - INCREASED PAIN OR INEFFECTIVE PAIN CONTROL MEASURES WILL BE IDENTIFIED AND PROMPTLY REPORTED TO THE PHYSICIAN. PATIENT/CAREGIVER WILL DEMONSTRATE EFFECTIVE PAIN MANAGEMENT. Goal Provider Goal - PATIENT/CAREGIVER WILL DEMONSTRATE SAFE TRANSFERS USING APPROPRIATE ASSISTIVE DEVICE, BODY MECHANICS AND EQUIPMENT. Goal Provider Goal - PATIENT/CAREGIVER WILL DEMONSTRATE IMPROVED GAIT TECHNIQUES TO MINIMIZE RISK OF INJURY. Goal Provider Goal - PATIENT/CAREGIVER WILL DEMONSTRATE/VERBALIZE UNDERSTANDING OF RECOMMENDATIONS TO INCREASE SAFETY IN THE HOME AND FALL PREVENTION. Encounters Start Date/Time End Date/Time Encounter Type Admission Type Attending [facility] Care Department Encounter ID Discharge Date Discharge Status Discharge Condition Discharge Reason Percent Goals Met 2025-01-04 00:00:00 2025-03-04 00:00:00 Outpatient NEW ADMISSION [facility] [id number] 33.33
== END 2025-01-20 08:50 | disposition home or self-care (01) ==
PROVIDERS: PCP Internal Medicine; Visit Provider Student in an Organized Health Care Education/Training Program
DX: M79.7 Fibromyalgia (principal)
CPT/HCPCS: 99213